=== PATIENT | female | born 1955 | race Caucasian/White ===

== ENCOUNTER → 2018-01-20 | Outpatient (REF) | payer BC ==
[2015-07-18 11:59] VITALS: BMI 21.7
[~2018-01-20] MED LIST: AMOX-362 PO; CLAR-1 PO; GABA-547; HYDR200T42; HYDR200T77 PO; MELO-207; PANT40TA65 PO; TRAZ100T31 PO; TRAZ150T8; VENL75CA58; ZOLP-1
[2018-01-20 14:20] LABS: PLATELET COUNT, AUTOMATED 207 K/uL (150-450)
== END ==
PROVIDERS: ATTEND Nurse Practitioner Family
DX: R19.7 Diarrhea, unspecified (principal); R53.83 Other fatigue
CPT/HCPCS: 82040; 82247; 82310; 82374; 82435; 82565; 82947; 83036; 84075; 84132; 84155; 84295; 84443; 84450; 84460; 84520; 85025

== ENCOUNTER → 2018-01-22 | Outpatient (REF) | payer BC ==
[2015-07-18 11:59] VITALS: BMI 21.7
== END ==
PROVIDERS: ATTEND Nurse Practitioner Family
DX: R19.7 Diarrhea, unspecified (principal); R53.83 Other fatigue
CPT/HCPCS: 82274; 83630; 87045; 87177; 87324; 87449